=== PATIENT | female | born 1950 | race American Indian/Alaskan Native ===

== ENCOUNTER 2019-10-30 08:57 | Day surgery (SDC) | payer MEDICARE, OTHER ==
[2019-10-30] MEDS ORDERED: Dexamethasone 4 MG/ML SDV IV ONE (08:58)
[2019-10-30] MEDS ORDERED: Midazolam 1 MG/ML 2 ML SDV IV ONE (08:58)
[2019-10-30] MEDS ORDERED: Sodium Chloride 0.9% 10 ML Syringe IV ONE (08:58)
[2019-10-30] MEDS ORDERED: Acetaminophen 325 MG Tab PO PRN (09:00)
[2019-10-30] MEDS ORDERED: Povidone-Iodine 5% Sterile Ophth Soln 30 ML Bottle EYERT ONE ×2 (09:00→10:35)
[2019-10-30] MEDS ORDERED: Sodium Chloride 0.9% 10 ML Syringe FLUSH PRN (09:00)
[2019-10-30] MEDS ORDERED: Proparacaine 0.5% Ophth Soln 15 ML Bottle EYERT ONE (09:00)
[2019-10-30] MEDS ORDERED: Ondansetron 4 MG/2 ML SDV IVPUSH PRN (09:00)
[2019-10-30] MEDS ORDERED: Phenylephrine 10% Ophth Soln 5 ML Bot EYERT ONE (09:00)
[2019-10-30] MEDS ORDERED: Cataract Ophth Solution EYERT ONE (09:00)
[2019-10-30] MEDS ORDERED: Tropicamide 1% Ophth Soln 15 ML Bottle EYERT ONE (09:00)
[2019-10-30] MEDS ORDERED: Timolol Maleate 0.5% Ophth Soln 5 ML Bottle EYERT ONE (09:00)
[2019-10-30] MEDS ORDERED: Phenylephrine 10% Ophth Soln 5 ML Bot EYERT PRN (09:00)
[2019-10-30] MEDS ORDERED: Moxifloxacin 0.5% Ophth Soln 3 ML Bottle EYERT ONE (09:00)
[2019-10-30] MEDS ORDERED: Tetracaine HCl/PF 0.5% 4 ML Bottle EYERT ONE (10:34)
[2019-10-30] MEDS ORDERED: Diclofenac Sodium 0.1% Ophth Soln 5 ML Bottle EYERT ONE (10:35)
[2019-10-30] MEDS ORDERED: Apraclonidine 0.5% Ophth Soln 5 ML Bot EYERT ONE (10:35)
[2019-10-30] MEDS ORDERED: Dexamethasone/Neomycin/Polymyxin B Ophth Oint 3.5 GM Tube EYERT ONE (10:35)
[2019-10-30] MEDS ORDERED: Lidocaine 1% 30 ML SDV ONE (10:35)
[2019-10-30] MEDS ORDERED: Chondroitin Sulfate/Hyaluronate Sodium Ophth Inj 0.5 ML Syringe IOCULAR ONE (10:36)
[2019-10-30] MEDS ORDERED: Chondroitin Sulfate/Hyaluronate Sodium Ophth Inj 0.75 ML Syringe EYERT ONE (10:36)
[2019-10-30] MEDS ORDERED: Acetylcholine 20 MG/2 ML Intraocular Inj Kit EYERT ONE (10:36)
[2019-10-30] MEDS ORDERED: Vancomycin 500 MG SDV EYERT ONE (10:36)
[2019-10-30] MEDS ORDERED: Balanced Salt Solution Ophth Irrig 500 ML Bottle IOCULAR ONE (10:36)
[2019-10-30 12:15] VITALS: BP 146/53; PULSE 68
--- NOTE | 2019-10-31 10:00 | OR ---
DATE: 10/30/2019 PREOPERATIVE DIAGNOSES: 1. Visually significant mixed cataract, right eye. 2. Primary open angle glaucoma, right eye. POSTOPERATIVE DIAGNOSES: 1. Visually significant mixed cataract, right eye. 2. Primary open angle glaucoma, right eye. PROCEDURES: 1. Extracapsular cataract extraction with intraocular lens implant, right eye. 2. Placement of iStent for glaucoma control. SURGEON: Frederic Turner MD ANESTHESIA: Local MAC. INDICATION: Ms. Myrick was seen in the clinic with complaints of blurred vision. The examination revealed visually significant mixed cataract. Examination also revealed mild primary open-angle glaucoma. I explained options, offered cataract surgery, and I explained risks, including, but not limited to, infection, retinal detachment, loss of vision, need for additional surgery, and risks associated with anesthesia. We discussed the implant options. She has requested a monofocal implant. I recommended surgery with the iStent. OPERATIVE DESCRIPTION: The patient was prepped and draped in a sterile fashion and topical anesthesia was applied. Attention was placed on the operative eye. A sterile lid speculum was placed to allow operative exposure. Paracentesis was made temporal. Intracameral lidocaine was administered. Viscoelastic was injected. A full-thickness corneal incision was made using the trapezoidal blade. Bent needle cystotome was then used to make a small gatito in the anterior capsule and a 360-degree curvilinear capsulorrhexis was created. Nucleus was then hydrodissected and hydrodelinated using balanced saline solution. Nucleus was then decompressed centrally and rotated and noted to be free of adhesions. Nucleus was then removed using the phacoemulsification handpiece. Additional viscoelastic was then injected into the capsular bag and the intraocular lens was inserted into the capsular bag. The iStent portion of the procedure was then performed. Following removal of the nucleus and cortex, the irrigation and aspiration handpiece was inserted to remove viscoelastic from the posterior surface of the IOL. Additional viscoelastic was then inserted into the anterior chamber angle directly opposite the corneal incision. Miochol was injected into the nasal iris to promote pupillary contraction. The patient's head was then rotated 35 degrees away from the initial position. The operating microscope was also rotated 35 degrees to achieve the proper orientation. The gonioprism was then placed onto the eye. The iStent was then inserted into the anterior chamber with the right hand and the stent was introduced into the pigmented trabecular meshwork. The stent was advanced beneath the trabecular meshwork until approximately two-thirds of the body was covered and then the stent was released from the insertion device. The stent was then tapped into its final resting position using the insertion device. The device was then reinspected to ensure that it was securely in position. The viscoelastic was aspirated from the anterior chamber. Wound and paracentesis sites were hydrated using balanced saline solution. Vancomycin 0.1 mL was injected into the anterior chamber. Intraocular lens was inspected and noted to be clear and well centered. Postoperative drops were placed and a sterile eye patch and shield were placed over the operative eye. The patient was then transported to the postoperative recovery area having tolerated the procedure well. No complications occurred. [facility] /[id number]
== END 2019-10-30 11:55 | disposition home or self-care (01) ==
LOC: DL.SDS 08:57
PROVIDERS: ATTEND Ophthalmology
DX: H40.1111 Primary open-angle glaucoma, right eye, mild stage (principal); E11.36 Type 2 diabetes mellitus with diabetic cataract; H25.811 Combined forms of age-related cataract, right eye; I10 Essential (primary) hypertension; E78.5 Hyperlipidemia, unspecified; J45.40 Moderate persistent asthma, uncomplicated; K21.9 Gastro-esophageal reflux disease without esophagitis; F11.20 Opioid dependence, uncomplicated; R11.0 Nausea; D64.9 Anemia, unspecified; Z87.891 Personal history of nicotine dependence; Z79.899 Other long term (current) drug therapy
CPT/HCPCS: A9270-GY; C1783; J1100; J1642; J2001; J2250; J3370; V2632

== ENCOUNTER 2019-11-08 15:38 | Emergency (ER) | payer MEDICARE, OTHER | END 2019-11-08 15:49 | disposition left against medical advice (07) | LOC: DL.ED 15:38 | DX: Z53.21 Procedure and treatment not carried out due to patient leaving prior to being seen by health care provider (principal) ==

== ENCOUNTER 2020-04-01 06:30 | Emergency (ER) | payer MEDICARE, OTHER ==
[2020-04-01 06:35] VITALS: BP 133/58; PULSE 120
[2020-04-01 07:14] LABS: PTT,PARTIAL THROMBOPLSTIN TIME 29.1 SEC (22.0-34.0)
[2020-04-01 07:26] LABS: ANION GAP 12.6 mEq/L (7-13); CHLORIDE,CL 97 mmol/L (98-107); SODIUM,NA 137 mmol/L (136-145)
[2020-04-01 07:33] LABS: CORONAVIRUS COVID-19 NAA NEGATIVE (NEGATIVE)
--- NOTE | 2020-04-01 07:52 | EDM.PDOC ---
ED HPI GENERAL MEDICAL PROBLEM - General Chief Complaint: General Stated Complaint: AMBULANCE Time Seen by Provider: 04/01/20 07:35 Source of Information: Reports: Patient History Limitations: Reports: No Limitations - History of Present Illness INITIAL COMMENTS - FREE TEXT/NARRATIVE: This 69 yo female patient was brought to the ED by [facility] due to increased weakness over the past couple of days. The patient reports she has had a cough over the past 6 years that has not changed. The patient reports she has not been able to eat in the morning for the past 6 months. The patient reports over the past 3 months she has noticed increased weakness on her left side. The patient reports she had a fever this morning. The patient has a history of lung cancer and has follow-up appointments every 6 months (next appointment is in June). The patient's primary care provider is Karissa Quan, but the patient could not remember the last clinic visit she had. Duration: Day(s):, Constant, Getting Worse Location: Reports: Chest Quality: Reports: Other Severity: Moderate Improves with: Reports: None Worsens with: Reports: None Context: Reports: Other Associated Symptoms: Reports: Fever/Chills, Weakness Lower Back Pain Score (Numeric/FACES): 4 - Related Data Allergies Allergy/AdvReac Type Severity Reaction Status Date / Time No Known Allergies Allergy Verified 10/30/19 09:20 Home Meds: Home Meds Lisinopril [Prinivil] 5 mg PO DAILY 01/23/15 [History] Aspirin 81 mg PO DAILY 12/18/17 [History] Acetaminophen [Tylenol Extra Strength] 500 mg PO DAILY 10/29/19 [History] Betamethasone Valerate [Valisone 0.1% Crm] 1 squirt TOP BID 10/29/19 [History] Buprenorphine HCl/Naloxone HCl [Buprenorphn-Naloxn 2-0.5 mg Sl] 1 tab SL BID 10/29/19 [History] Carboxymethylcellulose Sodium [Refresh Celluvisc] 1 drop EYEBOTH QID 10/29/19 [History] Cholecalciferol (Vitamin D3) [Vitamin D3] 25 mcg PO DAILY 10/29/19 [History] Docusate Sodium [Colace] 100 mg PO BID 10/29/19 [History] Ferrous Gluconate 324 tab PO DAILY 10/29/19 [History] Fluorometholone [Fluorometholone 0.1% Ophth Susp] 1 drop EYEBOTH BID 10/29/19 [History] Fluticasone Propion/Salmeterol [Fluticasone-Salmeterol 500-50] 1 pack INH Q12H 10/29/19 [History] Ketorolac [Acular 0.5% Ophth Soln] 1 drop EYERT BID 10/29/19 [History] Latanoprost 1 drop EYERT BEDTIME 10/29/19 [History] Multivitamin [Multivitamins] 1 tab PO DAILY 10/29/19 [History] Omeprazole 20 mg PO DAILY 10/29/19 [History] Prednisolone Acetate/Pf [Prednisolone Acet 1% Eye Drop] 1 drop EYERT QID 10/29/19 [History] Prochlorperazine Maleate 5 mg PO Q6H PRN 10/29/19 [History] Tiotropium [Spiriva HandiHaler] 1 unit INH ASDIRECTED 10/29/19 [History] atorvaSTATin Calcium [Atorvastatin Calcium] 40 mg PO BEDTIME 10/29/19 [History] buPROPion HCL [Bupropion Xl] 300 mg PO DAILY 10/29/19 [History] ondansetron HCL [Ondansetron HCl] 8 mg PO Q8H 10/29/19 [History] Past Medical History HEENT History: Reports: Cataract, Glaucoma Cardiovascular History: Reports: High Cholesterol, Hypertension Respiratory History: Reports: Asthma, COPD, SOB Gastrointestinal History: Reports: GERD Genitourinary History: Reports: None [employer] History: Reports: , Spontaneous Musculoskeletal History: Reports: Arthritis Other Musculoskeletal History: fracture of left arm and left leg Neurological History: Reports: CVA Psychiatric History: Reports: Depression Endocrine/Metabolic History: Reports: Diabetes, Type II Hematologic History: Reports: Anemia, B12 Deficiency Immunologic History: Reports: None Oncologic (Cancer) History: Reports: Lung Other Oncologic History: diagnosed in 2016 Dermatologic History: Reports: None - Infectious Disease History Infectious Disease History: Reports: None - Past Surgical History HEENT Surgical History: Reports: None Cardiovascular Surgical History: Reports: None GI Surgical History: Reports: None Musculoskeletal Surgical History: Reports: Other (See Below) Other Musculoskeletal Surgeries/Procedures:: left wrist surgery has hardware Dermatological Surgical History: Reports: None Social & Family History - Family History HEENT: Reports: None Cardiac: Reports: None Respiratory: Reports: None GI: Reports: None - Tobacco Use Tobacco Use Status *Q: Former Tobacco User Used Tobacco, but Quit: Yes Month/Year Tobacco Last Used: 2015 Second Hand Smoke Exposure: No - Recreational Drug Use Recreational Drug Use: No ED ROS GENERAL - Review of Systems Review Of Systems: Comprehensive ROS is negative, except as noted in HPI. ED EXAM, GENERAL - Physical Exam Exam: See Below Exam Limited By: No Limitations General Appearance: Alert, WD/WN, No Apparent Distress Eye Exam: Bilateral Eye: EOMI, Normal Inspection, PERRL Ears: Normal External Exam, Normal Canal, Hearing Grossly Normal, Normal TMs Nose: Normal Inspection, Normal Mucosa, No Blood Throat/Mouth: Normal Inspection, Normal Lips, Normal Teeth, Normal Gums, Normal Oropharynx, Normal Voice, No Airway Compromise Head: Atraumatic, Normocephalic Neck: Normal Inspection, Supple, Non-Tender, Full Range of Motion Respiratory/Chest: Decreased Breath Sounds, Rhonchi (diffuse) Cardiovascular: Normal Peripheral Pulses, Regular Rate, Rhythm, No Edema, No Gallop, No JVD, No Murmur, No Rub GI/Abdominal: Normal Bowel Sounds, Soft, Non-Tender, No Organomegaly, No Distention, No Abnormal Bruit, No Mass (Female) Exam: Deferred Rectal (Female) Exam: Deferred Back Exam: Normal Inspection, Full Range of Motion, NT Extremities: Normal Inspection, Normal Range of Motion, Non-Tender, Normal Capillary Refill, No Pedal Edema Neurological: Alert, Oriented, CN II-XII Intact, Normal Cognition, Normal Gait, Normal Reflexes, No Motor/Sensory Deficits Psychiatric: Normal Affect, Normal Mood Skin Exam: Warm, Dry, Intact, Normal Color, No Rash Lymphatic: No Adenopathy Course - Vital Signs Last Recorded V/S: Last Vital Signs Temp 38.0 C 04/01/20 06:30 Pulse 120 H 04/01/20 06:30 Resp 16 04/01/20 06:30 BP 133/58 L 04/01/20 06:30 Pulse Ox 95 04/01/20 06:30 - Orders/Labs/Meds Orders: Active Orders 24 hr Category Date Time Status CULTURE BLOOD [BC] Stat Lab 04/01/20 06:40 Received CULTURE BLOOD [BC] Stat Lab 04/01/20 07:41 Received DRUG SCREEN URINE BIORAD [URCHEM] Urgent Lab 04/01/20 06:39 Ordered UA RFX JESSICA AND CULT IF INDIC [URIN] Stat Lab 04/01/20 06:39 Ordered cefTRIAXone [Rocephin] 1 gm Med 04/01/20 08:09 Ordered Sodium Chloride 0.9% [Normal Saline] 50 ml IV ONETIME Blood Culture x2 Reflex Set [OM.PC] Stat Oth 04/01/20 06:40 Ordered Medication Orders Ceftriaxone Sodium 1 gm/ (Sodium Chloride) 50 mls @ 100 mls/hr IV ONETIME ONE Stop: 04/01/20 08:38 Labs: Laboratory Tests 04/01/20 04/01/20 04/01/20 Range/Units 06:40 06:40 06:40 WBC 22.7 H (5.0-10.0) 10^3/uL RBC 3.91 L (4.2-5.4) 10^6/uL Hgb 12.1 (12.0-16.0) g/dL Hct 36.4 L (37.0-47.0) % MCV 93.1 (80-100) fL MCH 30.9 (27.0-34.0) pg MCHC 33.2 (33.0-35.0) g/dL Plt Count 184 (150-450) 10^3/uL Neut % (Auto) 88.3 H (42.2-75.2) % Lymph % (Auto) 4.2 L (20.5-50.1) % [place] % (Auto) 7.4 (2-8) % Eos % (Auto) 0.0 L (1.0-3.0) % Baso % (Auto) 0.1 (0.0-1.0) % PT 11.3 (9.0-12.0) SEC INR 1.2 (0.9-1.2) APTT 29.1 (22.0-34.0) SEC D-Dimer, Quantitative 486 H (0-400) ng/mL Sodium 137 (136-145) mmol/L Potassium 3.6 (3.5-5.1) mmol/L Chloride 97 L (98-107) mmol/L Carbon Dioxide 31 (21-32) mmol/L Anion Gap 12.6 (7-13) mEq/L BUN 8 (7-18) mg/dL Creatinine 0.70 (0.55-1.02) mg/dL Est Cr Clr Drug Dosing 62.74 mL/min Estimated GFR (MDRD) > 60 BUN/Creatinine Ratio 11.4 (No establ ref range) Glucose 113 H (74-99) mg/dL Lactic Acid (0.4-2.0) mmol/L Calcium 8.8 (8.5-10.1) mg/dL Magnesium 1.4 L (1.8-2.4) mg/dL Total Bilirubin 0.6 (0.2-1.0) mg/dL AST 16 (15-37) U/L ALT 19 (14-59) U/L Alkaline Phosphatase 110 (46-116) U/L Lactate Dehydrogenase 152 (81-234) U/L C-Reactive Protein 25.6 H (0.0-0.9) mg/dL Total Protein 7.1 (6.4-8.2) g/dL Albumin 3.0 L (3.4-5.0) g/dL Globulin 4.1 Albumin/Globulin Ratio 0.73 Influenza Type A RNA (NEGATIVE) Influenza Type B RNA (NEGATIVE) SARS-CoV-2 RNA (ALO) (NEGATIVE) 04/01/20 04/01/20 Range/Units 06:40 06:45 WBC (5.0-10.0) 10^3/uL RBC (4.2-5.4) 10^6/uL Hgb (12.0-16.0) g/dL Hct (37.0-47.0) % MCV (80-100) fL MCH (27.0-34.0) pg MCHC (33.0-35.0) g/dL Plt Count (150-450) 10^3/uL Neut % (Auto) (42.2-75.2) % Lymph % (Auto) (20.5-50.1) % [place] % (Auto) (2-8) % Eos % (Auto) (1.0-3.0) % Baso % (Auto) (0.0-1.0) % PT (9.0-12.0) SEC INR (0.9-1.2) APTT (22.0-34.0) SEC D-Dimer, Quantitative (0-400) ng/mL Sodium (136-145) mmol/L Potassium (3.5-5.1) mmol/L Chloride (98-107) mmol/L Carbon Dioxide (21-32) mmol/L Anion Gap (7-13) mEq/L BUN (7-18) mg/dL Creatinine (0.55-1.02) mg/dL Est Cr Clr Drug Dosing mL/min Estimated GFR (MDRD) BUN/Creatinine Ratio (No establ ref range) Glucose (74-99) mg/dL Lactic Acid 0.6 (0.4-2.0) mmol/L Calcium (8.5-10.1) mg/dL Magnesium (1.8-2.4) mg/dL Total Bilirubin (0.2-1.0) mg/dL AST (15-37) U/L ALT (14-59) U/L Alkaline Phosphatase (46-116) U/L Lactate Dehydrogenase (81-234) U/L C-Reactive Protein (0.0-0.9) mg/dL Total Protein (6.4-8.2) g/dL Albumin (3.4-5.0) g/dL Globulin Albumin/Globulin Ratio Influenza Type A RNA Negative (NEGATIVE) Influenza Type B RNA Negative (NEGATIVE) SARS-CoV-2 RNA (ALO) Negative (NEGATIVE) Meds: Medications Generic Name Dose Route Start Last Admin Trade Name Freq PRN Reason Stop Dose Admin Ceftriaxone Sodium 1 gm/ 50 mls @ 100 mls/hr 04/01/20 08:09 Sodium Chloride IV 04/01/20 08:38 ONETIME ONE Discontinued Medications Generic Name Dose Route Start Last Admin Trade Name Freq PRN Reason Stop Dose Admin Azithromycin 500 mg 04/01/20 08:09 Zithromax PO 04/01/20 08:10 ONETIME ONE Departure - Departure Time of Disposition: 08:20 Disposition: Home, Self-Care 01 Condition: Fair Clinical Impression: Bronchitis - Discharge Information *PRESCRIPTION DRUG MONITORING PROGRAM REVIEWED*: Not Applicable *COPY OF PRESCRIPTION DRUG MONITORING REPORT IN PATIENT HEBER: Not Applicable Instructions: Acute Bronchitis, Adult, [id number] Forms: ED Department Discharge Care Plan Goals: The patient was advised of the examination and lab results during the visit. The patient was given an IV dose of Rocephin (1 gram) and an oral dose of Azithromycin while in the ED. The patient was discharged with a script for Azithromycin (250 mg) #4 to take 1 by mouth on days 2-5. If the patient has any additional symptoms or concerns, the patient should visit her primary care facility or return to the emergency department. Sepsis Event Note (ED) - Evaluation Sepsis Screening Result: No Definite Risk - Focused Exam Vital Signs: Vital Signs Temp Pulse Resp BP Pulse Ox 04/01/20 06:30 38.0 C 120 H 16 133/58 L 95 - My Orders Last 24 Hours: My Active Orders 04/01/20 06:40 CULTURE BLOOD [BC] Stat 04/01/20 08:09 cefTRIAXone [Rocephin] 1 gm Sodium Chloride 0.9% [Normal Saline] 50 ml IV ONETIME - Assessment/Plan Last 24 Hours: My Active Orders 04/01/20 06:40 CULTURE BLOOD [BC] Stat 04/01/20 08:09 cefTRIAXone [Rocephin] 1 gm Sodium Chloride 0.9% [Normal Saline] 50 ml IV ONETIME
--- NOTE | 2020-04-01 08:05 | CR ---
PROCEDURE INFORMATION: Exam: XR Chest, 2 Views Exam date and time: 04/01/2020 7:44 AM Age: 69 years old Clinical indication: Cough and other: Weakness (hx of lung cancer); Additional info: Weakness (hx of lung cancer) TECHNIQUE: Imaging protocol: XR of the chest Views: 2 views. COMPARISON: CR Chest 1V Frontal 04/23/2015 1:38:41 PM FINDINGS: Tubes, catheters and devices: Right-sided Port-A-Cath has been placed with its tip in the lower SVC. Lungs: There is mild bibasilar atelectasis with potential patchy infiltrate at the right base. Pleural spaces: Unremarkable. No pleural effusion. No pneumothorax. Heart/Mediastinum: There appears to be decreased right paratracheal soft tissue prominence. Bones/joints: Degenerative changes again involve the spine. IMPRESSION: 1. Mild bibasilar atelectasis with potential patchy infiltrate in the right lower lobe. 2. Appearance of decreased right paratracheal soft tissue prominence as compared with 04/23/15. Underlying lymphadenopathy or pathology not excluded.
[2020-04-01] MEDS ORDERED: Azithromycin 250 MG Tab PO ONE (08:09)
[2020-04-01] MEDS ORDERED: cefTRIAXone 1 GM in Sodium Chloride 0.9% 50 ML IV ONE (08:09)
== END 2020-04-01 09:10 | disposition home or self-care (01) ==
LOC: DL.ED 06:30
DX: J40 Bronchitis, not specified as acute or chronic (principal); E78.00 Pure hypercholesterolemia, unspecified; I10 Essential (primary) hypertension; J44.9 Chronic obstructive pulmonary disease, unspecified; M19.90 Unspecified osteoarthritis, unspecified site; E11.9 Type 2 diabetes mellitus without complications; Z20.822 Contact with and (suspected) exposure to COVID-19; Z87.891 Personal history of nicotine dependence; Z79.82 Long term (current) use of aspirin; Z79.899 Other long term (current) drug therapy
CPT/HCPCS: 0240U; 36415; 71046; 80053; 83605; 83615; 83735; 85025; 85379; 85610; 85730; 86140; 87040; 96365; 99283; 99285-25; A9270-GY; J0696

== ENCOUNTER 2022-08-21 17:37 | Emergency (ER) | payer MEDICARE, OTHER ==
[2022-08-21] MEDS ORDERED: Sodium Chloride 0.9% 10 ML Syringe FLUSH PRN (17:50)
[2022-08-21] MEDS ORDERED: Albuterol/Ipratropium 3.0-0.5 MG/3 ML Neb Soln NEB ONE (17:54)
[2022-08-21] MEDS: Sodium Chloride 0.9% 1,000 ML IV ONE ×2 (18:08→19:17)
[2022-08-21 18:26] LABS: BASOPHILS PERCENT AUTO 0.1 % (0.0-1.0); EOSINOPHILS PERCENT AUTO 0.8 % (1.0-3.0); HEMOGLOBIN 11.5 g/dL (12.0-16.0); LYMPHOCYTES PERCENT AUTO 4.6 % (20.5-50.1); MEAN CORPUSCULAR HEMOGLOBIN 31.6 pg (27.0-34.0); MEAN CORPUSCULAR HGB CONC 32.9 g/dL (33.0-35.0); MEAN CORPUSCULAR VOLUME 96.2 fL (80-100); MONOCYTES PERCENT AUTO 4.6 % (2-8); NEUTROPHILS PERCENT AUTO 89.9 % (42.2-75.2); PLATELET COUNT,PLT 177 10^3/uL (150-450); RED BLOOD CELL COUNT 3.64 10^6/uL (4.2-5.4); WHITE BLOOD CELL COUNT,WBC 13.8 10^3/uL (5.0-10.0)
[2022-08-21 18:50] LABS: INR 0.9 (0.9-1.2); LACTIC ACID 0.9 mmol/L (0.4-2.0); PROTHROMBIN TIME 9.1 SEC (9.0-12.0); PTT,PARTIAL THROMBOPLSTIN TIME 27.6 SEC (22.0-34.0)
[2022-08-21 18:58] LABS: ALBUMIN 2.9 g/dL (3.4-5.0); ANION GAP 8.1 mEq/L (7-13); BILIRUBIN TOTAL 0.3 mg/dL (0.2-1.0); BUN/CREATININE RATIO 19.2 (No establ ref range); C-REACTIVE PROTEIN 1.7 mg/dL (0.0-0.9); CALCIUM 8.5 mg/dL (8.5-10.1); CREATININE 0.73 mg/dL (0.55-1.02); EST CRCL DRUG DOSING (CG) 60.15 mL/min; MAGNESIUM 1.3 mg/dL (1.8-2.4); POTASSIUM,K 4.1 mmol/L (3.5-5.1); PROTEIN TOTAL,TP 6.2 g/dL (6.4-8.2)
[2022-08-21 18:59] LABS: A/G RATIO 0.88
[2022-08-21 19:06] LABS: AMPHETAMINES,URINE NEGATIVE (NEGATIVE); APPEARANCE,URINE CLEAR (CLEAR); BARBITURATES,URINE NEGATIVE (NEGATIVE); BENZODIAZEPINE,URINE NEGATIVE (NEGATIVE); BILIRUBIN,URINE NEGATIVE (NEGATIVE); COLOR,URINE YELLOW (YELLOW); GLUCOSE,URINE NEGATIVE (NEGATIVE); KETONES,URINE NEGATIVE (NEGATIVE); LEUKOCYTE ESTERASE,URINE NEGATIVE (NEGATIVE); MDMA (ECSTASY), URINE NEGATIVE (NEGATIVE); METHADONE,URINE NEGATIVE (NEGATIVE); METHAMPHETAMINES,URINE NEGATIVE (NEGATIVE); NITRITE,URINE NEGATIVE (NEGATIVE); OCCULT BLOOD,URINE NEGATIVE (NEGATIVE); OPIATES,URINE NEGATIVE (NEGATIVE); OXYCODONE,URINE NEGATIVE (NEGATIVE); PH,URINE 6.5 (5.0-9.0); PHENCYCLIDINE,URINE NEGATIVE (NEGATIVE); PROTEIN,URINE NEGATIVE (NEGATIVE); TCA,URINE NEGATIVE (NEGATIVE); UROBILINOGEN,URINE 0.2 mg/dL (0.2-1.0)
[2022-08-21] MEDS ORDERED: Piperacillin/Tazobactam 3.375 GM in Sodium Chloride 0.9% 100 ML IV ONE (19:07)
[2022-08-21] MEDS ORDERED: Furosemide 40 MG/4 ML VIAL ONE (20:03)
[2022-08-21] MEDS ORDERED: Norepinephrine Bit/D5W Premix 250 ML ONE (20:03)
[2022-08-21] MEDS ORDERED: Furosemide 40 MG/4 ML VIAL IVPUSH ONE (20:05)
[2022-08-21] MEDS ORDERED: Norepinephrine Bit/D5W Premix 250 ML IV SCH (20:15)
[2022-08-21 20:48] LABS: O2 DELIVERY DEVICE BIPAP
[2022-08-21 20:50] LABS: BASE EXCESS ARTERIAL -3 mmol/L ((-2)-(+3)); BICARBONATE,ARTERIAL 29.4 mmol/L (22-26); O2 SATURATION ARTERIAL 98 % (95-100); PO2 ARTERIAL 179 mmHg (70-100)
[2022-08-21 20:52] LABS: PCO2 ARTERIAL 94 mmHg (35-45); PH,ARTERIAL 7.13 (7.35-7.45)
[2022-08-21 22:36] VITALS: BP 91/56; PULSE 120
== END 2022-08-21 23:20 ==
LOC: DL.ED 17:37
DX: A41.9 Sepsis, unspecified organism (principal); J18.9 Pneumonia, unspecified organism; R65.21 Severe sepsis with septic shock; J96.21 Acute and chronic respiratory failure with hypoxia; J96.22 Acute and chronic respiratory failure with hypercapnia; G93.41 Metabolic encephalopathy; R77.8 Other specified abnormalities of plasma proteins; E11.10 Type 2 diabetes mellitus with ketoacidosis without coma; E78.00 Pure hypercholesterolemia, unspecified; I10 Essential (primary) hypertension; J44.9 Chronic obstructive pulmonary disease, unspecified; K21.9 Gastro-esophageal reflux disease without esophagitis; M19.90 Unspecified osteoarthritis, unspecified site; Z79.899 Other long term (current) drug therapy; Z79.82 Long term (current) use of aspirin; Z87.891 Personal history of nicotine dependence
CPT/HCPCS: 36415; 36600; 71045; 80053; 80305; 81003; 82150; 82803; 83605; 83690; 83735; 83880; 84145; 84484; 85025; 85610; 85730; 86140; 87040; 93005; 93010; 94640; 94660; 99285; J1940; J2543; J3370; J3490; J7030; J7050; 96361; 96365; 96366; 96367; 96368; 96375; J7620-GY

== ENCOUNTER 2022-09-09 14:25 | Inpatient (IN) | payer MEDICARE, OTHER ==
[2022-09-09] MEDS ORDERED: Sodium Chloride 0.65% Nasal Spray 45 ML Bottle NAS PRN (14:41)
[2022-09-09] MEDS ORDERED: Sennosides/Docusate Sodium 50-8.6 MG Tab PO PRN (14:41)
[2022-09-09] MEDS ORDERED: Bisacodyl 5 MG Tab PO PRN (14:41)
[2022-09-09] MEDS ORDERED: Ondansetron 4 MG Tab.DIS PO PRN (14:41)
[2022-09-09] MEDS ORDERED: Docusate Sodium 100 MG Cap PO PRN (14:41)
[2022-09-09] MEDS ORDERED: Prochlorperazine 5 MG Tab PO PRN (15:03)
[2022-09-09] MEDS ORDERED: ONDANSETRON HCL 8 MG PO PRN (15:03)
[2022-09-09] MEDS ORDERED: Albuterol 6.7 GM Inhaler INH PRN (15:03)
[2022-09-09] MEDS: Midodrine 2.5 MG Tab PO SCH (16:51)
[2022-09-09] MEDS ORDERED: Non-Formulary Medication 1 Each (Ferrous Gluconate [Ferrous Gluconate] 324 MG Tablet) PO SCH (21:00)
[2022-09-09] MEDS: atorvaSTATin 20 MG Tab PO SCH (21:54)
[2022-09-09] MEDS: Latanoprost 0.005% Ophth Soln 2.5 ML Bottle EYEBOTH SCH (21:54)
[2022-09-09] MEDS: Formoterol/Mometasone 200-5 MCG 8.8 GM Inhaler IH SCH (21:54)
[2022-09-09] MEDS: Ferrous Sulfate 325 MG Tab PO SCH (21:54)
[2022-09-10 06:32] LABS: BASOPHILS PERCENT AUTO 0.3 % (0.0-1.0); EOSINOPHILS PERCENT AUTO 3.1 % (1.0-3.0); HEMATOCRIT 30.5 % (37.0-47.0); HEMOGLOBIN 9.7 g/dL (12.0-16.0); LYMPHOCYTES PERCENT AUTO 15.8 % (20.5-50.1); MEAN CORPUSCULAR HEMOGLOBIN 32.4 pg (27.0-34.0); MEAN CORPUSCULAR HGB CONC 31.8 g/dL (33.0-35.0); MONOCYTES PERCENT AUTO 9.5 % (2-8); NEUTROPHILS PERCENT AUTO 71.3 % (42.2-75.2); PLATELET COUNT,PLT 120 10^3/uL (150-450); RED BLOOD CELL COUNT 2.99 10^6/uL (4.2-5.4); WHITE BLOOD CELL COUNT,WBC 5.9 10^3/uL (5.0-10.0)
[2022-09-10] MEDS: Omeprazole 20 MG Cap.CR PO SCH (06:33)
[2022-09-10] MEDS: predniSONE 20 MG Tab PO SCH (06:33)
[2022-09-10 06:50] LABS: ALBUMIN 3.2 g/dL (3.4-5.0); ANION GAP 6.3 mEq/L (7-13); CREATININE 0.75 mg/dL (0.55-1.02); EST CRCL DRUG DOSING (CG) 56.09 mL/min; MAGNESIUM 1.8 mg/dL (1.8-2.4); POTASSIUM,K 4.3 mmol/L (3.5-5.1); PROTEIN TOTAL,TP 5.6 g/dL (6.4-8.2)
[2022-09-10 06:51] LABS: A/G RATIO 1.33
[2022-09-10] MEDS: Insulin Glarg,Human.Rec.Analog 100 Unit/ML SUBCUT SCH (08:24)
[2022-09-10] MEDS: buPROPion 150 MG Tab.ER PO SCH (08:25)
[2022-09-10] MEDS: Midodrine 2.5 MG Tab PO SCH ×3 (08:25→18:05)
[2022-09-10] MEDS: Multivitamin Tab PO SCH (08:26)
[2022-09-10] MEDS: Ferrous Sulfate 325 MG Tab PO SCH ×2 (08:26→20:14)
[2022-09-10] MEDS: Furosemide 20 MG Tab PO SCH ×2 (08:26→14:43)
[2022-09-10] MEDS: Potassium Chloride 10 MEQ Tab.ER PO SCH (08:26)
[2022-09-10] MEDS: Aspirin 81 MG Tab.Chew PO SCH (08:26)
[2022-09-10] MEDS: Tiotropium Bromide 4 GM Inhalation Spray (2.5mcg/1 dose; 10 doses) INH SCH (08:27)
[2022-09-10] MEDS: Formoterol/Mometasone 200-5 MCG 8.8 GM Inhaler IH SCH ×2 (08:28→20:15)
[2022-09-10] MEDS ORDERED: Non-Formulary Medication 1 Each (Tiotropium [Spiriva Handihaler] 18 MCG Cap) INH SCH (09:00)
[2022-09-10] MEDS: Digoxin 125 MCG Tab PO SCH (12:43)
[2022-09-10] MEDS: atorvaSTATin 20 MG Tab PO SCH (20:14)
[2022-09-10] MEDS: Latanoprost 0.005% Ophth Soln 2.5 ML Bottle EYEBOTH SCH (20:14)
[2022-09-11] MEDS: Omeprazole 20 MG Cap.CR PO SCH (06:04)
[2022-09-11] MEDS: predniSONE 20 MG Tab PO SCH (06:04)
[2022-09-11] MEDS: Furosemide 20 MG Tab PO SCH ×2 (08:42→13:14)
[2022-09-11] MEDS: Ferrous Sulfate 325 MG Tab PO SCH ×2 (08:43→20:38)
[2022-09-11] MEDS: buPROPion 150 MG Tab.ER PO SCH (08:43)
[2022-09-11] MEDS: Potassium Chloride 10 MEQ Tab.ER PO SCH (08:43)
[2022-09-11] MEDS: Multivitamin Tab PO SCH (08:43)
[2022-09-11] MEDS: Midodrine 2.5 MG Tab PO SCH ×3 (08:43→17:25)
[2022-09-11] MEDS: Aspirin 81 MG Tab.Chew PO SCH (08:43)
[2022-09-11] MEDS: Insulin Glarg,Human.Rec.Analog 100 Unit/ML SUBCUT SCH (08:46)
[2022-09-11] MEDS: Formoterol/Mometasone 200-5 MCG 8.8 GM Inhaler IH SCH ×2 (08:49→20:38)
[2022-09-11] MEDS: Tiotropium Bromide 4 GM Inhalation Spray (2.5mcg/1 dose; 10 doses) INH SCH ×2 (08:49→08:52)
[2022-09-11] MEDS: Acetaminophen 325 MG Tab PO PRN (13:57)
[2022-09-11] MEDS: atorvaSTATin 20 MG Tab PO SCH (20:38)
[2022-09-11] MEDS: Latanoprost 0.005% Ophth Soln 2.5 ML Bottle EYEBOTH SCH (20:38)
[2022-09-12] MEDS: Omeprazole 20 MG Cap.CR PO SCH (05:49)
[2022-09-12] MEDS: predniSONE 20 MG Tab PO SCH (05:49)
[2022-09-12 06:26] LABS: BASOPHILS PERCENT AUTO 0.3 % (0.0-1.0); EOSINOPHILS PERCENT AUTO 3.5 % (1.0-3.0); HEMATOCRIT 30.5 % (37.0-47.0); HEMOGLOBIN 9.4 g/dL (12.0-16.0); LYMPHOCYTES PERCENT AUTO 13.1 % (20.5-50.1); MEAN CORPUSCULAR HEMOGLOBIN 31.9 pg (27.0-34.0); MEAN CORPUSCULAR HGB CONC 30.8 g/dL (33.0-35.0); MEAN CORPUSCULAR VOLUME 103.4 fL (80-100); MONOCYTES PERCENT AUTO 9.1 % (2-8); PLATELET COUNT,PLT 107 10^3/uL (150-450); RED BLOOD CELL COUNT 2.95 10^6/uL (4.2-5.4); WHITE BLOOD CELL COUNT,WBC 6.9 10^3/uL (5.0-10.0)
[2022-09-12] MEDS ORDERED: Non-Formulary Medication 1 Each (Alendronate Sodium [Alendronate Sodium] 70 MG Tablet) PO SCH (06:30)
[2022-09-12 06:39] LABS: ANION GAP 6.8 mEq/L (7-13); CALCIUM 9.1 mg/dL (8.5-10.1); CREATININE 0.77 mg/dL (0.55-1.02); EST CRCL DRUG DOSING (CG) 54.63 mL/min; POTASSIUM,K 3.8 mmol/L (3.5-5.1)
[2022-09-12] MEDS: buPROPion 150 MG Tab.ER PO SCH (08:37)
[2022-09-12] MEDS: Aspirin 81 MG Tab.Chew PO SCH (08:37)
[2022-09-12] MEDS: Midodrine 2.5 MG Tab PO SCH ×3 (08:37→16:46)
[2022-09-12] MEDS: Multivitamin Tab PO SCH (08:38)
[2022-09-12] MEDS: Digoxin 125 MCG Tab PO SCH (08:38)
[2022-09-12] MEDS: Ferrous Sulfate 325 MG Tab PO SCH ×2 (08:39→20:49)
[2022-09-12] MEDS: Potassium Chloride 10 MEQ Tab.ER PO SCH (08:39)
[2022-09-12] MEDS: Furosemide 20 MG Tab PO SCH ×2 (08:39→13:44)
[2022-09-12] MEDS: Formoterol/Mometasone 200-5 MCG 8.8 GM Inhaler IH SCH ×2 (08:45→20:49)
[2022-09-12] MEDS: Tiotropium Bromide 4 GM Inhalation Spray (2.5mcg/1 dose; 10 doses) INH SCH (08:45)
[2022-09-12] MEDS: Insulin Glarg,Human.Rec.Analog 100 Unit/ML SUBCUT SCH (08:51)
[2022-09-12] MEDS: Latanoprost 0.005% Ophth Soln 2.5 ML Bottle EYEBOTH SCH (20:49)
[2022-09-12] MEDS: atorvaSTATin 20 MG Tab PO SCH (20:49)
[2022-09-12] MEDS: Acetaminophen 325 MG Tab PO PRN (21:23)
[2022-09-12] MEDS: diphenhydrAMINE 25 MG Tab PO PRN (23:23)
[2022-09-13] MEDS: Omeprazole 20 MG Cap.CR PO SCH (06:23)
[2022-09-13] MEDS: predniSONE 10 MG Tab PO SCH (06:23)
[2022-09-13] MEDS: Potassium Chloride 10 MEQ Tab.ER PO SCH (08:55)
[2022-09-13] MEDS: Aspirin 81 MG Tab.Chew PO SCH (08:55)
[2022-09-13] MEDS: Multivitamin Tab PO SCH (08:55)
[2022-09-13] MEDS: buPROPion 150 MG Tab.ER PO SCH (08:56)
[2022-09-13] MEDS: Ferrous Sulfate 325 MG Tab PO SCH ×2 (08:56→20:31)
[2022-09-13] MEDS: Furosemide 20 MG Tab PO SCH ×2 (08:56→13:41)
[2022-09-13] MEDS: Midodrine 2.5 MG Tab PO SCH ×3 (08:56→17:45)
[2022-09-13] MEDS: Insulin Glarg,Human.Rec.Analog 100 Unit/ML SUBCUT SCH (11:04)
[2022-09-13] MEDS: Formoterol/Mometasone 200-5 MCG 8.8 GM Inhaler IH SCH ×2 (11:04→20:31)
[2022-09-13] MEDS: Tiotropium Bromide 4 GM Inhalation Spray (2.5mcg/1 dose; 10 doses) INH SCH ×2 (11:04→11:16)
[2022-09-13] MEDS: Latanoprost 0.005% Ophth Soln 2.5 ML Bottle EYEBOTH SCH (20:31)
[2022-09-13] MEDS: atorvaSTATin 20 MG Tab PO SCH (20:31)
[2022-09-13] MEDS: Acetaminophen 325 MG Tab PO PRN (20:43)
[2022-09-13] MEDS: diphenhydrAMINE 25 MG Tab PO PRN (20:44)
[2022-09-14] MEDS: Omeprazole 20 MG Cap.CR PO SCH (05:49)
[2022-09-14] MEDS: predniSONE 10 MG Tab PO SCH (05:50)
[2022-09-14] MEDS: Aspirin 81 MG Tab.Chew PO SCH (09:21)
[2022-09-14] MEDS: Midodrine 2.5 MG Tab PO SCH ×3 (09:21→16:29)
[2022-09-14] MEDS: Digoxin 125 MCG Tab PO SCH (09:22)
[2022-09-14] MEDS: Potassium Chloride 10 MEQ Tab.ER PO SCH (09:22)
[2022-09-14] MEDS: Furosemide 20 MG Tab PO SCH ×2 (09:22→14:29)
[2022-09-14] MEDS: buPROPion 150 MG Tab.ER PO SCH (09:22)
[2022-09-14] MEDS: Multivitamin Tab PO SCH (09:22)
[2022-09-14] MEDS: Ferrous Sulfate 325 MG Tab PO SCH ×2 (09:22→21:30)
[2022-09-14] MEDS: Tiotropium Bromide 4 GM Inhalation Spray (2.5mcg/1 dose; 10 doses) INH SCH (09:23)
[2022-09-14] MEDS: Formoterol/Mometasone 200-5 MCG 8.8 GM Inhaler IH SCH ×2 (09:23→17:56)
[2022-09-14] MEDS: Insulin Glarg,Human.Rec.Analog 100 Unit/ML SUBCUT SCH (09:27)
[2022-09-14] MEDS: Acetaminophen 325 MG Tab PO PRN ×2 (15:31→21:33)
[2022-09-14] MEDS: atorvaSTATin 20 MG Tab PO SCH (21:29)
[2022-09-14] MEDS: diphenhydrAMINE 25 MG Tab PO PRN (21:30)
[2022-09-14] MEDS: Latanoprost 0.005% Ophth Soln 2.5 ML Bottle EYEBOTH SCH (21:30)
[2022-09-15] MEDS: predniSONE 10 MG Tab PO SCH (05:17)
[2022-09-15] MEDS: Omeprazole 20 MG Cap.CR PO SCH (05:17)
[2022-09-15] MEDS: Formoterol/Mometasone 200-5 MCG 8.8 GM Inhaler IH SCH ×2 (05:19→06:26)
[2022-09-15] MEDS: Tiotropium Bromide 4 GM Inhalation Spray (2.5mcg/1 dose; 10 doses) INH SCH ×2 (06:25→11:11)
[2022-09-15 07:51] VITALS: BP 101/46; PULSE 68
[2022-09-15] MEDS: Multivitamin Tab PO SCH (08:27)
[2022-09-15] MEDS: Potassium Chloride 10 MEQ Tab.ER PO SCH (08:27)
[2022-09-15] MEDS: Aspirin 81 MG Tab.Chew PO SCH (08:27)
[2022-09-15] MEDS: Ferrous Sulfate 325 MG Tab PO SCH (08:27)
[2022-09-15] MEDS: Furosemide 20 MG Tab PO SCH (08:27)
[2022-09-15] MEDS: buPROPion 150 MG Tab.ER PO SCH (08:27)
[2022-09-15] MEDS: Insulin Glarg,Human.Rec.Analog 100 Unit/ML SUBCUT SCH (08:30)
[2022-09-15] MEDS: Midodrine 2.5 MG Tab PO SCH ×2 (08:41→11:14)
[2022-09-15] MEDS: Acetaminophen 325 MG Tab PO PRN (11:11)
== END 2022-09-15 13:07 | disposition home health service (06) | DRG 948 ==
LOC: DL.MS 14:29 → UNDOADMIN 14:29 → DL.MS 14:41
PROVIDERS: ADMIT Emergency Medicine; ATTEND Emergency Medicine
DX: R53.81 Other malaise (principal); C34.90 Malignant neoplasm of unspecified part of unspecified bronchus or lung; J43.1 Panlobular emphysema; N18.31 Chronic kidney disease, stage 3a; E11.22 Type 2 diabetes mellitus with diabetic chronic kidney disease; Z79.4 Long term (current) use of insulin; Z66 Do not resuscitate; I25.10 Atherosclerotic heart disease of native coronary artery without angina pectoris; K21.9 Gastro-esophageal reflux disease without esophagitis; M81.0 Age-related osteoporosis without current pathological fracture; D63.1 Anemia in chronic kidney disease; I12.9 Hypertensive chronic kidney disease with stage 1 through stage 4 chronic kidney disease, or unspecified chronic kidney disease; M19.90 Unspecified osteoarthritis, unspecified site; E78.00 Pure hypercholesterolemia, unspecified; I25.2 Old myocardial infarction; Z86.73 Personal history of transient ischemic attack (TIA), and cerebral infarction without residual deficits; Z79.82 Long term (current) use of aspirin; Z79.899 Other long term (current) drug therapy; Z79.52 Long term (current) use of systemic steroids; Z87.891 Personal history of nicotine dependence; Z98.49 Cataract extraction status, unspecified eye; Z87.01 Personal history of pneumonia (recurrent)
CPT/HCPCS: 36415; 80048; 80053; 80162; 82947; 83735; 85025; 94010; 94060; 97110-GO; 97110-GP; 97116-GP; 97161-GP; 97165-GO; 97530-GO; 97535-GO; A9270-GY; J1815-GY; J7512

== ENCOUNTER 2023-06-11 05:25 | Emergency (ER) | payer MEDICARE, OTHER ==
[2023-06-11 06:11] VITALS: BP 131/56; PULSE 99
[2023-06-11] MEDS: Ondansetron 4 MG/2 ML SDV IVPUSH ONE (06:15)
[2023-06-11] MEDS: Sodium Chloride 0.9% 10 ML Syringe FLUSH PRN (06:15)
[2023-06-11] MEDS: Lactated Ringers 1,000 ML IV SCH (06:16)
[2023-06-11 06:32] LABS: BASOPHILS PERCENT AUTO 0.1 % (0.0-1.0); EOSINOPHILS PERCENT AUTO 0.3 % (1.0-3.0); HEMATOCRIT 35.4 % (37.0-47.0); HEMOGLOBIN 11.7 g/dL (12.0-16.0); LYMPHOCYTES PERCENT AUTO 2.4 % (20.5-50.1); MEAN CORPUSCULAR HEMOGLOBIN 31.9 pg (27.0-34.0); MEAN CORPUSCULAR HGB CONC 33.1 g/dL (33.0-35.0); MEAN CORPUSCULAR VOLUME 96.5 fL (80-100); MONOCYTES PERCENT AUTO 2.5 % (2-8); NEUTROPHILS PERCENT AUTO 94.7 % (42.2-75.2); PLATELET COUNT,PLT 217 10^3/uL (150-450); RED BLOOD CELL COUNT 3.67 10^6/uL (4.2-5.4); WHITE BLOOD CELL COUNT,WBC 15.6 10^3/uL (5.0-10.0)
[2023-06-11 06:45] LABS: ALANINE AMINOTRANSFERASE,ALT 113 U/L (14-59); ALBUMIN 2.8 g/dL (3.4-5.0); ALKALINE PHOSPHATASE 622 U/L (46-116); ANION GAP 11.4 mEq/L (7-13); ASPARTATE AMNIOTRANSFERASE,AST 70 U/L (15-37); BILIRUBIN TOTAL 2.5 mg/dL (0.2-1.0); BLOOD UREA NITROGEN,BUN 12 mg/dL (7-18); BUN/CREATININE RATIO 16.7 (No establ ref range); CALCIUM 9.1 mg/dL (8.5-10.1); CARBON DIOXIDE,CO2 32 mmol/L (21-32); CHLORIDE,CL 100 mmol/L (98-107); CREATININE 0.72 mg/dL (0.55-1.02); GLUCOSE RANDOM 129 mg/dL (70-99); LIPASE 38 U/L (16-77); MAGNESIUM 1.3 mg/dL (1.8-2.4); POTASSIUM,K 3.4 mmol/L (3.5-5.1); PROTEIN TOTAL,TP 7.1 g/dL (6.4-8.2); SODIUM,NA 140 mmol/L (136-145)
[2023-06-11 06:46] LABS: A/G RATIO 0.65; ESTIMATED GFR 89 mL/min (>=60)
[2023-06-11 06:47] LABS: LACTIC ACID 0.9 mmol/L (0.4-2.0)
[2023-06-11 07:17] LABS: APPEARANCE,URINE CLEAR (CLEAR); BILIRUBIN,URINE NEGATIVE (NEGATIVE); COLOR,URINE DARK YELLOW (YELLOW); GLUCOSE,URINE NEGATIVE (NEGATIVE); KETONES,URINE NEGATIVE (NEGATIVE); LEUKOCYTE ESTERASE,URINE NEGATIVE (NEGATIVE); NITRITE,URINE NEGATIVE (NEGATIVE); OCCULT BLOOD,URINE NEGATIVE (NEGATIVE); PROTEIN,URINE NEGATIVE (NEGATIVE)
[2023-06-11] MEDS: HYDROmorphone 1 MG/ML Syringe IVPUSH ONE (07:17)
[2023-06-11] MEDS: Sodium Chloride 0.9% 1,000 ML IV ONE (07:23)
[2023-06-11] MEDS: Piperacillin/Tazobactam 4.5 GM in Sodium Chloride 0.9% 100 ML IV ONE (07:30)
[2023-06-11] MEDS: Iopamidol 612 MG/ML 100 ML Bottle IVPUSH ONE (07:57)
== END 2023-06-11 11:41 ==
LOC: DL.ED 05:25
DX: K80.63 Calculus of gallbladder and bile duct with acute cholecystitis with obstruction (principal); I10 Essential (primary) hypertension; I25.2 Old myocardial infarction; I25.10 Atherosclerotic heart disease of native coronary artery without angina pectoris; E11.9 Type 2 diabetes mellitus without complications; K21.9 Gastro-esophageal reflux disease without esophagitis; J44.89 Other specified chronic obstructive pulmonary disease; Z86.73 Personal history of transient ischemic attack (TIA), and cerebral infarction without residual deficits; Z79.82 Long term (current) use of aspirin; Z79.899 Other long term (current) drug therapy; Z79.4 Long term (current) use of insulin; Z79.51 Long term (current) use of inhaled steroids; Z87.891 Personal history of nicotine dependence
CPT/HCPCS: 36415; 74177; 80053; 81003; 83605; 83690; 83735; 85025; 96361; 96365; 96375; 99284; 99285; J1170; J2405; J2543; J3490; J7030; J7120; Q9967

== ENCOUNTER 2024-03-18 18:03 | Emergency (ER) | payer MEDICARE, MEDICAID, OTHER ==
[2024-03-18] MEDS: Acetaminophen 325 MG Tab PO ONE (20:22)
[2024-03-18 21:35] VITALS: BP 128/59; PULSE 67
[2024-03-18] MEDS: Morphine 2 MG/ML SYRINGE IVPUSH ONE (21:48)
[2024-03-18] MEDS: Ondansetron 4 MG/2 ML SDV IVPUSH ONE (21:48)
== END 2024-03-18 22:42 | disposition still patient (30) ==
LOC: DL.ED 18:03
DX: R07.81 Pleurodynia (principal); I25.2 Old myocardial infarction; I10 Essential (primary) hypertension; E78.00 Pure hypercholesterolemia, unspecified; I25.10 Atherosclerotic heart disease of native coronary artery without angina pectoris; J44.89 Other specified chronic obstructive pulmonary disease; K21.9 Gastro-esophageal reflux disease without esophagitis; E11.9 Type 2 diabetes mellitus without complications; Z79.82 Long term (current) use of aspirin; Z79.899 Other long term (current) drug therapy; Z79.4 Long term (current) use of insulin; Z79.51 Long term (current) use of inhaled steroids
CPT/HCPCS: 71046; 71101-RT; 72050; 72070; 72100; 73130-LT; 96374; 96375; 99284; 99285-25; A9270-GY; J2270; J2405